=== PATIENT | female | born 1970 | race Caucasian/White ===

== ENCOUNTER 2018-01-31 11:21 | Outpatient (CLI) | payer BC ==
--- NOTE | 2018-01-31 13:34 | ULT ---
HEPATIC SONOGRAM WITH DUPLEX EVALUATION: HISTORY: Abnormal liver function tests. FINDINGS: Gallbladder is surgically absent. Common duct is distended at 1.2 cm without other abnormality evide nt. Liver is unremarkable without focal mass or intrahepatic biliary dilatation. No free fluid. The spleen is 10.4 cm in length without focal abnormality. Good color and spectral Doppler flow with in the hepatic and splenic arteries. Portal venous flow is towards the liver. Hepatic venous flow i s towards the IVC. IMPRESSION: 1. Status post cholecystectomy. 2. Common bile duct distended at 1.2 cm. Cause is not evident. Clinical correlation regarding othe r signs and symptoms of central biliary obstruction is required. No other significant abnormalities are apparent. 3. No sonographic evidence of portal venous hypertension. POS: [facility]
== END 2018-01-31 11:22 | disposition home or self-care (01) ==
LOC: ULT 11:21
PROVIDERS: ATTEND Internal Medicine Gastroenterology
DX: R74.8 Abnormal levels of other serum enzymes (principal); K83.8 Other specified diseases of biliary tract; Z90.49 Acquired absence of other specified parts of digestive tract
CPT/HCPCS: 76705

== ENCOUNTER 2018-05-08 07:46 | Outpatient (CLI) | payer BC | END 2018-05-08 07:47 | disposition home or self-care (01) | LOC: BICMAMMO 07:46 | PROVIDERS: ATTEND Family Medicine | DX: Z12.31 Encounter for screening mammogram for malignant neoplasm of breast (principal) | CPT/HCPCS: 77063; 77067 ==

== ENCOUNTER 2021-03-30 14:23 | Outpatient (CLI) | payer BC | END 2021-03-30 14:24 | disposition home or self-care (01) | LOC: BICRAD 14:23 | PROVIDERS: ATTEND Internal Medicine Rheumatology | DX: M25.551 Pain in right hip (principal); M25.552 Pain in left hip | CPT/HCPCS: 73523 ==

== ENCOUNTER → 2024-01-10 | Day surgery (SDC) | payer BC ==
[~2024-01-10] MED LIST: Lidocaine 1% w/Epinephrine 1:100K 20 ML VIAL ONE; Midazolam HCl 2 mg/2 ml Vial ONE; Sodium Bicarbonate 2.5 MEQ/5 ML SDV ONE; fentaNYL 50 mcg/mL 1 mL Vial ONE
[2024-01-10 07:42] LABS: #Basophils 0.09 10x3/uL (0.0-0.2); %Basophils 1.1 % (0.0-1.0); %Eosinophils 5.2 % (0.0-10.0); %Lymphocytes 34.3 % (21.0-51.0); Hematocrit 46.1 % (36.0-47.0); Hemoglobin 15.3 g/dL (12.0-16.0); Mean Corpuscular HGB CONC 33.2 g/dL (32.0-36.0); Mean Corpuscular Hemoglobin 30.9 pg (27.0-31.0); Mean Corpuscular Volume 93.1 fL (78.0-98.0); Mean Platelet Volume 9.4 fL (7.4-10.4); Platelet Count 464 10x3/uL (130-400); RBC Distribution Width 11.8 % (11.5-14.5); Red Blood Cell (RBC) Count 4.95 mill/uL (4.20-5.40)
[2024-01-10 08:00] LABS: PTT 29.3 sec (22.9-36.1)
== END ==
LOC: ULT 07:13
PROVIDERS: ATTEND Internal Medicine Gastroenterology
PROC: 0F923ZX Drainage of Left Lobe Liver, Percutaneous Approach, Diagnostic (ICD-10-PCS; principal; 2024-01-10)
DX: K75.9 Inflammatory liver disease, unspecified (principal); K21.9 Gastro-esophageal reflux disease without esophagitis; R74.01 Elevation of levels of liver transaminase levels; E06.3 Autoimmune thyroiditis; Z79.890 Hormone replacement therapy; Z79.899 Other long term (current) drug therapy
CPT/HCPCS: 47000; 76942; 85025; 85610; 85730; 88307; 88313; 99152; 99153; J2250; J3010

== ENCOUNTER 2024-02-28 11:34 | Inpatient (IN) | payer BC ==
[2024-02-28 12:10] LABS: #Basophils 0.07 10x3/uL (0.0-0.2); %Basophils 0.4 % (0.0-1.0); %Eosinophils 2.5 % (0.0-10.0); %Lymphocytes 19.1 % (21.0-51.0); %Monocytes 9.6 % (0.0-10.0); Hematocrit 44.7 % (36.0-47.0); Hemoglobin 15.8 g/dL (12.0-16.0); Mean Corpuscular HGB CONC 35.3 g/dL (32.0-36.0); Mean Corpuscular Hemoglobin 31.1 pg (27.0-31.0); Mean Platelet Volume 9.8 fL (7.4-10.4); Platelet Count 311 10x3/uL (130-400); RBC Distribution Width 11.9 % (11.5-14.5); Red Blood Cell (RBC) Count 5.08 mill/uL (4.20-5.40)
[2024-02-28] MEDS ORDERED: Morphine 4 MG/ML VIAL ONE (12:10)
[2024-02-28] MEDS ORDERED: Ondansetron PF 4 MG/2 ML Vial ONE (12:10)
[2024-02-28 12:25] LABS: ALT (SGPT) 36 U/L (8-55); AST (SGOT) 30 U/L (5-34); Albumin 3.2 g/dL (3.5-5.0); Alkaline Phosphatase 78 U/L (40-110); Anion Gap 14 mmol/L (10-20); BUN (Urea Nitrogen) 7 mg/dL (9.8-20.1); Bilirubin, Total 1.1 mg/dL (0.2-1.2); Calc. Creatinine Clearance 0 mL/min (70-130); Calcium 8.2 mg/dL (7.8-10.44); Carbon Dioxide 20 mmol/L (22-29); Chloride 102 mmol/L (98-107); Estimated GFR 105; Globulin 3.4 g/dL (2.4-3.5); Glucose 109 mg/dL (70-105); Lipase 26 U/L (8-78); Magnesium 1.7 mg/dL (1.6-2.6); Potassium 3.4 mmol/L (3.5-5.1); Protein, Total 6.6 g/dL (6.0-8.3); Sodium 133 mmol/L (136-145)
[2024-02-28] MEDS ORDERED: metroNIDAZOLE 500 MG (100 mL) BAG ONE (14:11)
[2024-02-28] MEDS ORDERED: Ondansetron PF 4 MG/2 ML Vial IVP PRN (14:39)
[2024-02-28] MEDS ORDERED: Acetaminophen 325 MG TAB PO PRN (14:39)
[2024-02-28] MEDS ORDERED: Iopamidol-370 76% 500 ML MDV (1 ML CHARGE) ONE (14:51)
[2024-02-28 16:42] VITALS: BMI 39.4
[2024-02-28] MEDS: Vancomycin HCl 125 MG Capsule PO SCH ×2 (16:43→21:34)
[2024-02-28] MEDS: Potassium Chloride 20 MEQ TAB PO SCH (17:05)
[2024-02-28] MEDS: traMADol HCl 50 MG TAB PO PRN (17:05)
[2024-02-28] MEDS: Lactated Ringer's 1,000 ML IV SCH (17:06)
[2024-02-28] MEDS: Magnesium 2 GM/50 ML(in water) 2 GM in Premix 1 BAG IVPB SCH (17:06)
[2024-02-28] MEDS: FLU (Fluarix Triv) TS24-25(6MOS UP)/PF 45 MCG/0.5 ML Syringe IM ONE (17:45)
[2024-02-28] MEDS ORDERED: Vancomycin HCl 125 MG Capsule PO SCH (18:00)
[2024-02-28] MEDS: metroNIDAZOLE 500 MG in Premix 1 BAG IVPB SCH (21:34)
[2024-02-28] MEDS: Famotidine 20 MG TAB PO SCH (21:34)
[2024-02-29 05:01] LABS: #Basophils 0.05 10x3/uL (0.0-0.2); %Basophils 0.4 % (0.0-1.0); %Eosinophils 5.5 % (0.0-10.0); %Lymphocytes 21.9 % (21.0-51.0); %Neutrophils 61.9 % (42.0-75.0); Hematocrit 39.1 % (36.0-47.0); Hemoglobin 13.1 g/dL (12.0-16.0); Mean Corpuscular HGB CONC 33.5 g/dL (32.0-36.0); Mean Corpuscular Hemoglobin 30.7 pg (27.0-31.0); Mean Corpuscular Volume 91.6 fL (78.0-98.0); Mean Platelet Volume 9.9 fL (7.4-10.4); Platelet Count 258 10x3/uL (130-400); RBC Distribution Width 12.2 % (11.5-14.5); Red Blood Cell (RBC) Count 4.27 mill/uL (4.20-5.40)
[2024-02-29 05:13] LABS: ALT (SGPT) 32 U/L (8-55); AST (SGOT) 26 U/L (5-34); Albumin 2.6 g/dL (3.5-5.0); Alkaline Phosphatase 72 U/L (40-110); Anion Gap 10 mmol/L (10-20); BUN (Urea Nitrogen) 4 mg/dL (9.8-20.1); Bilirubin, Total 0.9 mg/dL (0.2-1.2); Calc. Creatinine Clearance 208 mL/min (70-130); Calcium 7.6 mg/dL (7.8-10.44); Carbon Dioxide 25 mmol/L (22-29); Chloride 105 mmol/L (98-107); Estimated GFR 112; Globulin 2.8 g/dL (2.4-3.5); Glucose 102 mg/dL (70-105); Magnesium 2.1 mg/dL (1.6-2.6); Potassium 3.6 mmol/L (3.5-5.1); Protein, Total 5.4 g/dL (6.0-8.3); Sodium 136 mmol/L (136-145)
[2024-02-29] MEDS: Levothyroxine 175 MCG TAB PO SCH (05:48)
[2024-02-29] MEDS ORDERED: Pantoprazole DR 40 MG TAB PO SCH (09:00)
[2024-02-29] MEDS: Liothyronine Sodium 5 MCG TAB PO SCH (09:15)
[2024-03-01 04:49] LABS: #Basophils 0.06 10x3/uL (0.0-0.2); %Basophils 0.6 % (0.0-1.0); %Eosinophils 8.7 % (0.0-10.0); %Lymphocytes 33.3 % (21.0-51.0); %Monocytes 10.8 % (0.0-10.0); %Neutrophils 46.3 % (42.0-75.0); Hemoglobin 12.9 g/dL (12.0-16.0); Mean Corpuscular HGB CONC 33.9 g/dL (32.0-36.0); Mean Corpuscular Volume 91.3 fL (78.0-98.0); Mean Platelet Volume 9.6 fL (7.4-10.4); Platelet Count 258 10x3/uL (130-400); RBC Distribution Width 12.1 % (11.5-14.5); Red Blood Cell (RBC) Count 4.16 mill/uL (4.20-5.40)
[2024-03-01 05:09] LABS: ALT (SGPT) 28 U/L (8-55); AST (SGOT) 25 U/L (5-34); Albumin 2.5 g/dL (3.5-5.0); Alkaline Phosphatase 65 U/L (40-110); Anion Gap 10 mmol/L (10-20); BUN (Urea Nitrogen) 4 mg/dL (9.8-20.1); Bilirubin, Total 0.4 mg/dL (0.2-1.2); Calc. Creatinine Clearance 184 mL/min (70-130); Calcium 7.9 mg/dL (7.8-10.44); Carbon Dioxide 25 mmol/L (22-29); Chloride 106 mmol/L (98-107); Estimated GFR 108; Glucose 95 mg/dL (70-105); Magnesium 1.9 mg/dL (1.6-2.6); Protein, Total 5.5 g/dL (6.0-8.3); Sodium 137 mmol/L (136-145)
[2024-03-01] MEDS ORDERED: Ipratropium/Albuterol 3 ML NEB NEB PRN (08:17)
[2024-03-01] MEDS: Enoxaparin 40 MG (0.4 mL) SYRINGE SC SCH (08:42)
[2024-03-01] MEDS: Ipratropium/Albuterol 3 ML NEB NEB SCH (08:43)
[2024-03-01 15:28] VITALS: BP 114/64; TEMP 98
[2024-03-03 05:41] LABS: Campy jejuni + coli by PCR Negative (Negative); STEC Shiga Toxin 1+2 Negative (Negative); Salmonella spp. by PCR Negative (Negative); Shigella spp + EIEC by PCR Negative (Negative)
== END 2024-03-01 15:41 | disposition home or self-care (01) | DRG 872 ==
LOC: ERS 11:34 → T4-B 14:38 → OBSVTOIN 02-29 15:28
PROVIDERS: ADMIT Internal Medicine; ATTEND Family Medicine
DX: A41.9 Sepsis, unspecified organism (principal); E87.1 Hypo-osmolality and hyponatremia; D84.9 Immunodeficiency, unspecified; A04.72 Enterocolitis due to Clostridium difficile, not specified as recurrent; E87.6 Hypokalemia; E03.9 Hypothyroidism, unspecified; K86.89 Other specified diseases of pancreas; Z79.899 Other long term (current) drug therapy; K21.9 Gastro-esophageal reflux disease without esophagitis; F32.A Depression, unspecified; Z90.710 Acquired absence of both cervix and uterus; Z90.49 Acquired absence of other specified parts of digestive tract
CPT/HCPCS: 36415; 71045; 74177; 80053; 83605; 83690; 83735; 83880; 85025; 87040; 87324; 87449; 87505; 96375; 96376; G0378; J1650; J2272; J2405; J3475; J7120; J7620; Q9967

== ENCOUNTER 2024-03-05 08:26 | Outpatient (CLI) | payer BC | END 2024-03-05 08:27 | disposition home or self-care (01) | LOC: MRI 08:26 | PROVIDERS: ATTEND Internal Medicine Gastroenterology | DX: R93.3 Abnormal findings on diagnostic imaging of other parts of digestive tract (principal); R74.8 Abnormal levels of other serum enzymes; R94.5 Abnormal results of liver function studies | CPT/HCPCS: 74183; 76376 ==